=== PATIENT | male | born 1995 | race Caucasian/White ===

== ENCOUNTER 2016-11-30 09:36 | Emergency (ER) | payer OTHER ==
[~2016-11-30] VITALS: Ht 177.8 cm; Wt 79.0 kg
[2016-11-30 09:40] VITALS: TEMP 37.2; Ht 177.8 cm; Wt 79.0 kg
[2016-11-30] MEDS ORDERED: MTR800 PO (10:16)
[2016-11-30] MEDS ORDERED: ASPI81TA28 PO (10:16)
[2016-11-30] MEDS ORDERED: OPTIRAY 320 IV PRN (11:30)
--- NOTE | 2016-11-30 11:41 | DIAGNOSTIC IMAGING REPORT ---
CHEST ONE VIEW PORTABLE CLINICAL HISTORY: CHEST PAIN dyspnea COMPARISON STUDY: No previous studies for comparison. FINDINGS: The bones soft tissues and hemidiaphragms are normal. The cardiomediastinal silhouette is normal. The lungs are clear. The pulmonary vasculature is normal. IMPRESSION: Negative chest. Electronically signed by: Gilles Zacarias M.D. 11/30/2016 11:40 AM Dictated Date/Time: 11/30/2016 11:36 AM
[2016-11-30 11:48] LABS: INR 1.2 (0.9-1.1); PARTIAL THROMBOPLASTIN RATIO 1.1; PROTHROMBIN TIME (PATIENT) 12.5 SECONDS (9.0-12.0)
[2016-11-30 11:49] LABS: BLOOD UREA NITROGEN 15 mg/dl (7-18); BUN/CREATININE RATIO 16.9 (10-20); CALCIUM 9.7 mg/dl (8.5-10.1); CARBON DIOXIDE 27 mmol/L (21-32); CHLORIDE 105 mmol/L (98-107); CREATININE 0.88 mg/dl (0.60-1.40); GLUCOSE 84 mg/dl (70-99); POTASSIUM 4.3 mmol/L (3.5-5.1); SODIUM 138 mmol/L (136-145)
[2016-11-30 11:49] LABS: HEMATOCRIT 41.9 % (42-52); MEAN CELL VOLUME 84.3 fL (80-100); MEAN CORPUSCULAR HEMOGLOBIN 30.4 pg (25-34); MEAN PLATELET VOLUME 9.1 fL (7.4-10.4); PLATELET COUNT 236 K/uL (130-400); RED BLOOD COUNT 4.97 M/uL (4.7-6.1); WHITE BLOOD COUNT 9.98 K/uL (4.8-10.8)
[2016-11-30 11:54] LABS: ALB/GLOB RATIO 0.9 (0.9-2); ALKALINE PHOSPHATASE 53 U/L (45-117); ALT/SGPT 22 U/L (12-78); AST/SGOT 14 U/L (15-37)
--- NOTE | 2016-11-30 14:15 | DIAGNOSTIC IMAGING REPORT ---
CHEST CTA for PULMONARY ARTERIES CT DOSE: 251.37 mGy.cm HISTORY: Chest pain dyspnea TECHNIQUE: Multiaxial CT images of the chest were performed following the intravenous administration of contrast to evaluate the pulmonary arteries. Maximal intensity projection images were also obtained. COMPARISON STUDY: None. FINDINGS: Thoracic aorta is normal in course and caliber. Pulmonary vasculature enhances appropriately. There are findings of significant bilateral high axillary adenopathy. Nodes in the right measure up to 1.5 cm on the left 1.6 cm. Several nodes in the aortopulmonary window region of the mediastinum with nodes measuring up to 12 mm. Precarinal nodes measure up to 1.4 cm. Evaluation of the lung parenchyma demonstrates minimal dependent basilar atelectasis. IMPRESSION: 1. Study is negative for pulmonary embolus. 2. Lungs are generally clear. 3. note is made of moderate hepatosplenomegaly. 4. High axillary adenopathy bilaterally considered significant with several indeterminate mediastinal and aortopulmonary window nodes. Electronically signed by: Gilles Zacarias M.D. 11/30/2016 2:13 PM Dictated Date/Time: 11/30/2016 2:09 PM
[2016-11-30 14:44] VITALS: BP 115/73
[2016-11-30] MEDS ORDERED: COLC0.6T54 PO (14:47)
[2016-11-30] MEDS ORDERED: IBUP600T44 PO (14:47)
[2016-11-30 14:53] VITALS: O2SAT 98
[2016-11-30 15:36] VITALS: PULSE 102
--- NOTE | 2016-11-30 17:27 | EMERGENCY ROOM VISIT NOTE ---
History First contact with patient: 11:03 Chief Complaint: CHEST PAIN Stated Complaint: CHEST PAIN Nursing Triage Summary: went to [facility]. was having chest pains for the past couple days. ekg, and chest xray done. they wanted me to come here and have blood work. when I lay down I breath faster. went to [place] returned last wednesday History of Present Illness The patient is a 21 year old male who presents to the Emergency Room with complaints of sharp stabbing central to left central chest pain, radiating into his back, left posterior shoulder and left neck region. The patient reports that his symptoms started abruptly 2 days ago. He reports that the pain is improved when sitting up or leaning forward, and worse when laying on his back. he patient reports that he went to [place] 2 weeks ago. He returned Wednesday a week ago, and within 24 hours, developed nausea, vomiting and diarrhea that lasted until last Wednesday, or 6 days ago. He denies any persistent nausea, vomiting or abdominal pain. No other friends that when with him on his trip got sick. The patient denies any history of immunocompromise. He has had no recent cough, sore throat, runny nose, congestion or headache. The patient went to the [facility] urgent care center where an ECG and chest x-ray were done. He was referred here for further workup. The patient currently rates his discomfort a 3 out of 10. The patient did take some ibuprofen yesterday which helped with the pain. The patient denies any other cardiopulmonary history. Review of Systems HEENT: Denies dizziness, visual problems, hearing loss, tinnitus. Denies difficulty swallowing or oral lesions. PULMONARY: Denies cough, shortness of breath, sputum production or hemoptysis. CARDIOVASCULAR: See history of present illness, otherwise denies palpitations, dyspnea on exertion, orthopnea or peripheral edema. GASTROINTESTINAL: See history of present illness for recent nausea, vomiting and diarrhea, otherwise denies any current symptoms. GENITOURINARY: Denies dysuria, frequency, urgency or nocturia. NEUROLOGIC: Denies history of epilepsy, CVA, TIA or chronic headaches. MUSCULOSKELETAL: Denies history of joint tenderness/swelling. SKIN: Denies rashes or lesions. PSYCHIATRIC: Denies history of depression or mental illness. ENDOCRINE: Denies history of diabetes or thyroid disorders. Past Medical/Surgical History Medical Problems: (1) No significant past medical history Surgical Problems: (1) No history of previous surgery Family History Unremarkable Social History Smoking Status: Never Smoker Alcohol Use: occasionally Marital Status: single Occupation Status: [employer] student Current/Historical Medications Scheduled Colchicine (Colchicine), 0.6 MG PO BID Ibuprofen (Motrin), 600 MG PO TID Miscellaneous Medications Aspirin (Aspirin Ec), 324 MG PO Ibuprofen (Ibuprofen), 800 MG PO Allergies Coded Allergies: No Known Allergies (Unverified , 11/30/16) Physical Exam Vital Signs Date Time Temp Pulse Resp B/P Pulse Ox O2 Delivery O2 Flow Rate FiO2 11/30/16 15:36 102 19 11/30/16 15:31 103 21 11/30/16 15:26 93 25 11/30/16 15:21 93 18 11/30/16 15:16 102 24 11/30/16 15:11 89 18 11/30/16 15:06 96 17 11/30/16 15:01 89 23 11/30/16 14:56 93 27 11/30/16 14:53 98 Room Air 11/30/16 14:51 93 21 11/30/16 14:46 96 21 11/30/16 14:44 96 18 115/73 11/30/16 14:43 115/73 11/30/16 14:41 99 23 11/30/16 14:36 96 25 11/30/16 14:31 99 29 11/30/16 14:26 96 25 11/30/16 14:21 93 20 11/30/16 14:16 94 22 11/30/16 14:11 94 18 11/30/16 14:06 98 17 11/30/16 14:01 97 25 11/30/16 13:56 96 22 11/30/16 13:51 91 17 11/30/16 13:46 92 16 11/30/16 13:41 97 20 11/30/16 13:39 100 11/30/16 13:35 130/82 11/30/16 13:21 103 20 130/82 11/30/16 11:30 91 20 117/72 99 Room Air 11/30/16 09:40 37.2 90 18 129/88 100 Room Air Physical Exam CONSTITUTIONAL: Healthy and well nourished. Alert and oriented X 3 with positive affect. She does not appear acutely ill or toxic, nor does he appear in any acute distress. HEENT: Normocephalic, atraumatic. Pupils equal, round and reactive. Ears and nares are clear. No scleral icterus or conjunctival injection/pallor. NECK: Full active range of motion without discomfort. No nuchal rigidity. RESPIRATORY: Clear to auscultation bilaterally with no wheezing, crackles, rhonchi or stridor. CARDIOVASCULAR: Regular rate and rhythm with no murmurs, rubs or gallops appreciated. GASTROINTESTINAL: Bowel sounds present in all quadrants. Abdomen is soft and nontender to palpation. Negative CVA tenderness. No hepatosplenomegaly. No rigidity, guarding or rebound. MUSCULOSKELETAL: Full range of motion of all joints without discomfort. INTEGUMENTARY: No rash or other significant dermatologic conditions noted. HEMATOLOGIC: No ecchymosis or petechiae noted. NEUROLOGIC: No focal neurologic deficits noted. Medical Decision & Procedures ER Provider Diagnostic Interpretation: My interpretation of an ECG shows early repolarization. The patient has no inferior changes.. No QT prolongation or other conduction abnormalities. No prior ECGs are available for comparison. My interpretation of a portable chest x-ray does not show any consolidations, pneumothorax or widened mediastinum. Radiologist report is as follows: CHEST ONE VIEW PORTABLE CLINICAL HISTORY: CHEST PAIN dyspnea COMPARISON STUDY: No previous studies for comparison. FINDINGS: The bones soft tissues and hemidiaphragms are normal. The cardiomediastinal silhouette is normal. The lungs are clear. The pulmonary vasculature is normal. IMPRESSION: Negative chest. Chest CT angiography with IV contrast shows multiple mediastinal and bilateral axillary lymph nodes. Radiologist report is as follows: CHEST CTA for PULMONARY ARTERIES CT DOSE: 251.37 mGy.cm HISTORY: Chest pain dyspnea TECHNIQUE: Multiaxial CT images of the chest were performed following the intravenous administration of contrast to evaluate the pulmonary arteries. Maximal intensity projection images were also obtained. COMPARISON STUDY: None. FINDINGS: Thoracic aorta is normal in course and caliber. Pulmonary vasculature enhances appropriately. There are findings of significant bilateral high axillary adenopathy. Nodes in the right measure up to 1.5 cm on the left 1.6 cm. Several nodes in the aortopulmonary window region of the mediastinum with nodes measuring up to 12 mm. Precarinal nodes measure up to 1.4 cm. Evaluation of the lung parenchyma demonstrates minimal dependent basilar atelectasis. IMPRESSION: 1. Study is negative for pulmonary embolus. 2. Lungs are generally clear. 3. note is made of moderate hepatosplenomegaly. 4. High axillary adenopathy bilaterally considered significant with several indeterminate mediastinal and aortopulmonary window nodes. Laboratory Results 11/30/16 11:35 11/30/16 10:45 Test 11/30/16 10:45 11/30/16 11:35 Prothrombin Time 12.5 SECONDS (9.0-12.0) Prothromb Time International Ratio 1.2 (0.9-1.1) Activated Partial Thromboplast Time 29.6 SECONDS (21.0-31.0) Partial Thromboplastin Ratio 1.1 Anion Gap 6.0 mmol/L (3-11) Est Creatinine Clear Calc Drug Dose 137.1 ml/min Estimated GFR () 142.3 Estimated GFR (Non- 122.8 BUN/Creatinine Ratio 16.9 (10-20) Calcium Level 9.7 mg/dl (8.5-10.1) Total Bilirubin 0.6 mg/dl (0.2-1) Direct Bilirubin 0.1 mg/dl (0-0.2) Aspartate Amino Transf (AST/SGOT) 14 U/L (15-37) Alanine Aminotransferase (ALT/SGPT) 22 U/L (12-78) Alkaline Phosphatase 53 U/L (45-117) Total Creatine Kinase 54 U/L (39-308) Creatine Kinase MB < 0.5 ng/ml (0.5-3.6) Creatine Kinase MB Ratio (0-3.0) Troponin I 0.016 ng/ml (0-0.045) C-Reactive Protein 4.02 mg/dl (0-0.29) Total Protein 8.0 gm/dl (6.4-8.2) Albumin 3.8 gm/dl (3.4-5.0) Globulin 4.2 gm/dl (2.5-4.0) Albumin/Globulin Ratio 0.9 (0.9-2) Lipase 192 U/L (73-393) Red Blood Count 4.97 M/uL (4.7-6.1) Mean Corpuscular Volume 84.3 fL (80-100) Mean Corpuscular Hemoglobin 30.4 pg (25-34) Mean Corpuscular Hemoglobin Concent 36.0 g/dl (32-36) RDW Standard Deviation 39.0 fL (36.4-46.3) RDW Coefficient of Variation 12.8 % (11.5-14.5) Mean Platelet Volume 9.1 fL (7.4-10.4) Erythrocyte Sedimentation Rate 12 mm/hr (0-14) The above labs were reviewed. ED Course Patient history and physical exam were performed. Nurse's notes were reviewed. Vital signs were reviewed and normal. The patient is currently afebrile, normotensive and not tachycardic. The patient does not appear acutely ill or in any acute respiratory distress. IV access was established, and labs were ordered per nursing protocol. An ECG shows mild ST elevation in precordial leads. Portable chest x-ray was normal. Because of history and clinical findings concerning for pericarditis, a CT angiography with IV contrast showed no evidence for pulmonary emboli. The patient does have pronounced mediastinal and bilateral axillary adenopathy. Findings were discussed with the patient. I did explain to the patient that I would speak with hematology/oncology and cardiology. I also discussed the case with Dr. Moody, ED attending physician. I initially spoke with Dr. Sanchez, machine biller, who will see the patient in his office within the next few days for an echocardiogram. He is suggesting starting the patient on colchicine 0.6 mg twice a day, and ibuprofen 600 mg 3 times a day. I then discussed the case with Dr. Pierce, medical affairs director/oncologist, who recommended speaking with surgery about lymph node biopsy. I then discussed the case further with Dr. Cleveland, thoracic surgeon, who reviewed the CT scan and does not feel that the patient currently requires if no biopsy. He and apparently spoke with Dr. Pierce who will follow the patient in his office. The patient was provided contact information for Dr. Sanchez and Dr. Pierce. He was provided prescriptions for colchicine and ibuprofen. He was instructed to return to the emergency department for any progressively worsening symptoms. The patient was happy with plan of care, voiced understanding of all discharge instructions, and denied any significant discomfort at the time of discharge. Medical Decision Patient presents to the emergency department with complaint of chest pain that is worsened when lying on his back or with deep breathing. His pain is improved with sitting up and leaning forward. This is consistent with symptoms that one would see with acute pericarditis. The patient does not have any ECG changes or chest x-ray/CT chest findings consistent with acute pericarditis. Other differentials considered included myocarditis. Imaging studies does not show any evidence for pneumonia or pneumothorax. Pleurisy is also possible for the patient's pain. The patient does have moderate hepatosplenomegaly and mediastinal/bilateral axillary adenopathy of unknown etiology. I do feel that the patient is safe for outpatient management. Impression Primary Impression: Non-cardiac chest pain Additional Impressions: Mediastinal adenopathy Axillary adenopathy Hepatosplenomegaly Departure Information Prescriptions Ibuprofen (Motrin) 600 Mg Tab 600 MG PO TID, #90 TAB PRN Prov: Carlos Alberto Cotton PA 11/30/16 Colchicine (Colchicine) 0.6 Mg Tab 0.6 MG PO BID, #60 TAB Prov: Carlos Alberto Cotton PA 11/30/16 Referrals [facility] (PCP) Patient Instructions My [facility] Problem Qualifiers
== END 2016-11-30 15:56 | disposition home or self-care (01) ==
LOC: C.EDB 09:40
DX: R07.89 Other chest pain (principal); R59.1 Generalized enlarged lymph nodes; R16.2 Hepatomegaly with splenomegaly, not elsewhere classified

== ENCOUNTER → 2017-01-05 | Outpatient (CLI) | payer OTHER ==
[~2017-01-05] MED LIST: ASPI81TA28 PO; COLC0.6T54 PO; IBUP600T44 PO; MTR800 PO; OPTIRAY 320 IV PRN
--- NOTE | 2017-01-05 08:22 | DIAGNOSTIC IMAGING REPORT ---
CT OF THE CHEST WITH IV CONTRAST CLINICAL HISTORY: Adenopathy COMPARISON STUDY: 11/30/2016 TECHNIQUE: Following the IV administration of 94 mL of [id number]-320, CT of the thorax was performed from the thoracic inlet to the lung bases. Images are reviewed in the axial, sagittal, and coronal planes. IV contrast was administered without complication. CT DOSE: 297.48 mGycm FINDINGS: Thyroid: Imaged portions of the thyroid gland are normal in appearance. Thoracic aorta: The thoracic aorta is normal in course and caliber, noting standard 3-vessel arch anatomy. No aneurysm or dissection is seen. Pulmonary vasculature: The pulmonary trunk is normal in caliber. There are no central filling defects identified to suggest pulmonary embolus. Note that this examination was not protocoled for the evaluation of pulmonary emboli. HEART: The heart is normal in size and configuration, without pericardial effusion. Lungs and pleural spaces: No pleural effusions are visualized. There is no focal pulmonary consolidation. Mediastinum: There is no mediastinal lymphadenopathy. Jaleesa: There is no evidence of pathologic hilar adenopathy Axilla: There are borderline enlarged bilateral axillary lymph nodes, similar to the preceding study. Upper abdomen: There is a stable hepatic calcification. Skeletal structures: There are no lytic or blastic osseous lesions. IMPRESSION: 1. Borderline enlarged bilateral axillary lymph nodes 2. No evidence of mediastinal or hilar lymphadenopathy by size criteria 3. No evidence of focal pulmonary consolidation Electronically signed by: Young Vaca M.D. 01/05/2017 8:20 AM Dictated Date/Time: 01/05/2017 8:14 AM
== END | disposition home or self-care (01) ==
LOC: C.CTS 07:35
PROVIDERS: ATTEND Internal Medicine Hematology & Oncology
DX: R59.0 Localized enlarged lymph nodes (principal)